=== PATIENT | female | born 1985 | race Caucasian/White ===

== ENCOUNTER 2022-12-10 10:21 | Outpatient (CLI) | payer MEDICAID, SELFPAY | END 2022-12-10 10:22 | disposition home or self-care (01) | PROVIDERS: PCP Internal Medicine; Visit Provider Internal Medicine | DX: F41.9 Anxiety disorder, unspecified (principal) | CPT/HCPCS: 80053; 84443 ==

== ENCOUNTER 2024-04-20 13:31 | Outpatient (CLI) | payer BC, SELFPAY ==
--- OUTSIDE RECORDS SUMMARY | 2024-04-21 14:47 | XMS_ITS | Clinical Summary ---
Author Organization [facility] Address [address], [place] [address] Care Team Providers Care Autoglazier Name Role Phone Unassigned, Provider Primary Care Provider Unava ilable Source Comments You are receiving this document as you are listed as the primary care provider,follow-up provider, or the patient has been referred to you for consultation.This is in compliance with the Medicare and[facility] EHR Incentive Program,which states Providers who transition their patient to another setting of careor provider of care or refers their patient to another provider of care shouldprovide summary care record for each transition of care or referral. [email or web address] Allergies Active Allergy Reactions Criticality Noted Date Comments Azathioprine 05/27/2011 R sided pain Prochlorperazine Other, see comments 05/14/2011 Dystonic reaction Droperidol 05/27/2011 Nsaids Other, see comments 05/14/2011 Not supposed to take b/c of Collitis Medications Medication Sig Dispensed Refills Start Date End Date Status venlafaxine (AKA EFFEXOR XR) 75 MG 24 hour release capsule Take 75 mg by mouth daily. Active citalopram (AKA CELEXA) 20 MG tablet Take 20 mg by mouth daily. Active mesalamine (AKA ASACOL) 400 MG enteric coated tablet Take 1,600 mg by mouth two times a day. Active cholecalciferol (AKA VITAMIN D3) 1000 UNIT tablet Take 5,000 Units by mouth every other day. Active adalimumab (HUMIRA PEN STARTER) 40 MG/0.8ML injection Inject subcutaneously every 14 days. See below 1 Each 3 05/29/2011 Active predniSONE (AKA DELTASONE) 20 MG tablet Take 2 Tabs by mouth daily. 10 Tab 0 01/25/2013 Active ondansetron (ZOFRAN ODT) 4 MG disintegrating tablet Take 2 Tabs by mouth every 8 hours as needed for Nausea. 30 Tab 0 01/25/2013 Active HYDROcodone-acetamin ophen (NORCO) 5-325 MG tablet Take 2 Tabs by mouth every 8 hours as needed for Pain. 6 Tab 0 01/25/2013 Active Active Problems Problem Noted Date Diagnosed Date IBD (inflammatory bowel disease) 05/27/2011 Asthma 05/27/2011 Anemia 05/27/2011 Depression 05/27/2011 Overview: Depression and anxiety Vitamin D deficiency 05/27/2011 Encounters Date Type Department Care Team Description 04/06/2024 12:20 PM CDT Lab Visit [facility] [address] [place] [address] Mild chronic ulcerative colitis with complication (HRC) from Last 3 Months Immunizations Name Administration Dates Next Due Influenza Vaccine (3+years) (Imm Clinic) 011 PPSV23 (Pneumovax) 05/26/2011 Family History Medical History Relation Name Comments COPD Father Other Brother down's syndrome Diabetes Sister Relation Name Status Comments Father Brother Sister Social History Tobacco Use Types Packs/Day Years Used Date Smoking Tobacco: Never Alcohol Use Standard Drinks/Week Comments No 0 (1 standard drink = 0.6 oz pur e alcohol) Sex and Gender Information Value Date Recorded Sex Assigned at Not on file Gender Identity Not on file Sexual Orientation Not on file Last Filed Vital Signs Vital Sign Reading Time Taken Comments Blood Pressure 107/60 01/25/2013 4:43 AM CDT Pulse 92 01/25/2013 4:43 AM CDT Temperature 36.7 ??C (98.1 ??F) 01/25/2013 1 2:23 AM CDT Respiratory Rate 16 01/25/2013 4:43 AM CDT Oxygen Saturation 97% 01/25/2013 4:43 AM CDT Inhaled Oxygen Concentration - - Weight 58.5 kg (128 lb 15.5 oz) 011 12:00 AM CDT Height 170.2 cm (5' 7) 05/27/2011 1:54 PM CDT Body Mass Index 20.2 05/27/2011 1:54 PM CDT Plan of Treatment Health Maintenance Due Date Last Done Comments Cervical Cancer Screening Due 1985 Hep C Screening (Preventive Services) 1985 Asthma ACT 1989 HIV Screening (Preventive Services) 2001 Adult Preventive Visit 2003 HepB (1) 2004 COVID-19 Vaccine (4 - season) 2023 09/13/2021, 02/10/2021, 01/21/2021 Influenza (#1) 2024 09/10/2022, 05/26, 07/02/2018, Additional history exists DTaP/Tdap/Td (4 - Tdap) 03/07/2028 03/07/20 18, 03/04/2018, 05/30/2016 Zoster/Shingles (2 of 2) 2035 11/12/2022 IPV (Polio) Aged Out 05/30/2016 No longer eligi ble based on patient's age to complete this topic Pneumococcal Aged Out 06/22/2016, 05/26/2011 No lo nger eligible based on patient's age to complete this topic HPV Vaccine Aged Out No longer eligi ble based on patient's age to complete this topic HepA Aged Out No longer eligi ble based on patient's age to complete this topic Hib Aged Out No longer eligi ble based on patient's age to complete this topic MCV4 Aged Out No longer eligi ble based on patient's age to complete this topic Procedures Procedure Name Priority Date/Time Associated Diagnosis Comments COMPLETE BLOOD COUNT-W/DIFF Routine 04/06/2024 12:17 PM CDT Mild chronic ulcerative colitis with complication (HRC) AST Routine 04/06/2024 12:17 PM CDT Mild chronic ulcerative colitis with complication (HRC) ALT (SGPT) Routine 04/06/2024 12:17 PM CDT Mild chronic ulcerative colitis with complication (HRC) CBC AND DIFFERENTIAL PANEL Routine 04/06/2024 12:17 PM CDT Mild chronic ulcerative colitis with complication (HRC) from Last 3 Months Results * Complete Blood Count-W/Diff (04/06/2024 12:17 PM CDT) [facility] WBC 5.9 3.5 - 10.5 x10(9)/L 04/06/2024 12:26 PM [facility] RBC 3.96 3.90 - 5.03 x10(12)/L 04/06/2024 12:26 PM [facility] Hemoglobin 12.4 12.0 - 15.5 g/dL 04/06/2024 12:26 PM [facility] HCT 38.2 34.9 - 44.5 % 04/06/2024 12:26 PM [facility] MCV 96.5 80.0 - 100.0 fL 04/06/2024 12:26 PM [facility] MCH 31.3 27.6 - 33.3 pg 04/06/2024 12:26 PM [facility] MCHC 32.5 31.5 - 35.2 g/dL 04/06/2024 12:26 PM [facility] RDW 12.9 11.9 - 15.5 % 04/06/2024 12:26 PM [facility] Platelets 389 150 - 450 x10(9)/L 04/06/2024 12:26 PM [facility] Neutrophil Absolute 3.0 1.7 - 7.0 10(9)/L 04/06/2024 12:26 PM [facility] Lymphocyte Absolute 2.3 1.0 - 4.8 10(9)/L 04/06/2024 12:26 PM [facility] Monocyte Absolute 0.5 0.2 - 0.9 10(9)/L 04/06/2024 12:26 PM [facility] Eosinophil Absolute 0.1 0.0 - 0.5 10(9)/L 04/06/2024 12:26 PM [facility] Basophil Absolute 0.1 0.0 - 0.3 10(9)/L 04/06/2024 12:26 PM [facility] Immature Granulocyte % 0.2 0.0 - 0.5 % 04/06/2024 12:26 PM [facility] Blood Venipuncture / Unknown 04/06/2024 12:17 PM CDT 04/06/2024 12:17 PM CDT Giancarlo Yadav MD LAB_1 Performing Organization Address City/[facility] Co de Phone Number [facility] [address] [place] [address] * ALT (SGPT) (04/06/2024 12:17 PM CDT) ALT (SGPT) 28 <=55 U/L 04/06/2024 5:06 PM CDT [facility] Blood Venipuncture / Unknown 04/06/2024 12:17 PM CDT 04/06/2024 12:17 PM CDT Giancarlo Yadav MD LAB_1 Performing Organization Address [facility] de Phone Number [facility] [address] [place] [address] * AST (04/06/2024 12:17 PM CDT) AST (SGOT) 29 10 - 40 U/L 04/06/2024 5:06 PM CDT [facility] Blood Venipuncture / Unknown 04/06/2024 12:17 PM CDT 04/06/2024 12:17 PM CDT Giancarlo Yadav MD LAB_1 Performing Organization Address [facility] Phone Number [facility] [address] [place] [address] from Last 3 Months Advance Directives * Full Code (Latest Code Status on File) Date Activated Date Inactivated Comments 05/27/2011 12:42 PM 05/29/2011 7:49 PM Care Teams Autoglazier Relationship Specialty Start Date End Date Unassigned, Provider [address] [place] [address] PCP - General Unknown Physician Specialty 01/25/13
--- OUTSIDE RECORDS SUMMARY | 2024-04-21 14:47 | XMS_ITS | Encounter Summary ---
Author Organization [facility] Address [address] [place] [address] Care Team Providers Care Bag Machine Operator Name Role Phone Unassigned, Provider Primary Care Provider Unava ilable Encounter Details Date Type Department Care Team (Late st Contact Info) Description 05/06/2016 Correspondence External to LETTER TO PATIENT REGARDING BIOPSIES Social History Tobacco Use Types Packs/Day Years Used Date Smoking Tobacco: Never Alcohol Use Standard Drinks/Week Comments No 0 (1 standard drink = 0.6 oz pur e alcohol) Sex and Gender Information Value Date Recorded Sex Assigned at Not on file Gender Identity Not on file Sexual Orientation Not on file documented as of this encounter Plan of Treatment Not on file documented as of this encounter Visit Diagnoses Not on filedocumented in this encounter Care Teams Bag Machine Operator Relationship Specialty Start Date End Date Unassigned, Provider [address] [place] [address] PCP - General Unknown Physician Specialty 01/25/13 documented as of this encounter
--- OUTSIDE RECORDS SUMMARY | 2024-04-21 14:47 | XMS_ITS | Clinical Summary ---
Author Organization [facility] Address [address] [place] [address] Care Team Providers Care Lead Security Officer Name Role Phone [facility], [facility] Primary Care Provider [phone] Allergies Active Allergy Reactions Criticality Noted Date Comments Azathioprine 06/14/2020 Prochlorperazine 06/14/2020 Droperidol 06/14/2020 Flurbiprofen 06/14/2020 Nsaids 06/14/2020 Medications Medication Sig Dispensed Refills Start Date End Date Status mesalamine (LIALDA) 1.2 g EC tablet Take 1,200 mg by mouth daily (with breakfast) Active venlafaxine (EFFEXOR-XR) 75 MG 24 hr capsule Take 75 mg by mouth daily Active adalimumab (HUMIRA) 40 MG/0.8ML prefilled syringe kit Inject 40 mg Subcutaneous every 14 days Active methocarbamol (ROBAXIN) 750 MG tablet Take 1 tablet (750 mg) by mouth every 6 hours as needed for muscle spasms 30 tablet 11/10/2022 Active Active Problems Problem Noted Date Diagnosed Date Severe sepsis 06/14/2020 Immunizations Name Administration Dates Next Due COVID-19 MONOVALENT 12+ (Pfizer) 09/13/2021,01/22,01/21/2021 Social History Tobacco Use Types Packs/Day Years Used Date Smoking Tobacco: Never Assessed Adolescent Education Answer Date Record ed Getting School Help Needed Not on file 06/16 Sex and Gender Information Value Date Recorded Sex Assigned at Female 06/14/2022 2:40 PM CDT Gender Identity Female 06/14/2022 2:40 PM CDT Sexual Orientation Not on file Last Filed Vital Signs Vital Sign Reading Time Taken Comments Blood Pressure 106/81 11/13/2023 6:52 AM LEAD RADIATION THERAPIST Pulse 97 11/13/2023 6:52 AM LEAD RADIATION THERAPIST Temperature 37.1 ??C (98.8 ??F) 11/13/2023 6:52 AM CS T Respiratory Rate 18 11/13/2023 6:52 AM LEAD RADIATION THERAPIST Oxygen Saturation 100% 11/13/2023 6:52 AM LEAD RADIATION THERAPIST Inhaled Oxygen Concentration - - Weight 59.4 kg (131 lb) 11/13/2023 6:52 AM LEAD RADIATION THERAPIST Height 167.6 cm (5' 6) 11/13/2023 6:52 AM LEAD RADIATION THERAPIST Body Mass Index 21.14 11/13/2023 6:52 AM LEAD RADIATION THERAPIST Plan of Treatment Health Maintenance Due Date Last Done Comments ADVANCE CARE PLANNING 1985 ANNUAL REVIEW OF HM ORDERS 1985 HIV SCREENING 2000 HEPATITIS C SCREENING 2003 HEPATITIS B IMMUNIZATION (3 of 3 - 19+ 3-dose series) 09/30/2008 05/04/2008, 05/04/2008, 03/30/2008, Additional history exists IPV IMMUNIZATION (2 of 3 - Adult catch-up series) 06/27/2016 05/30/2016 Pneumococcal Vaccine: Pediatrics (0 to 5 Years) and At-Risk Patients (6 to 64 Years) (3 of 3 - PPSV23 or PCV20) 2016 06/22/2016, 05/26/2011 PAP 01/31/2018 01/31/2015 YEARLY PREVENTIVE VISIT 11/25/2020 11/26/19 20, 10/31/2017, 02/18/2013, Additional history exists COVID-19 Vaccine ( - 2022- season) 2023 09/13/2021, 02/10/2021, 01/21/2021 PHQ-2 (once per calendar year) 2023 INFLUENZA VACCINE (#1) 2024 2, 06/22/2019, 07/02/2018, Additional history exists GLUCOSE 11/13/2026 11/13/2023, 10/24, 11/10/2022, Additional history exists DTAP/TDAP/TD IMMUNIZATION (4 - Td or Tdap) 03/07/2028 03/07/2018, 03/04/2018, 05/30/2016 HPV IMMUNIZATION Aged Out No longer e ligible based on patient's age to complete this topic MENINGITIS IMMUNIZATION Aged Out No l onger eligible based on patient's age to complete this topic RSV MONOCLONAL ANTIBODY Aged Out No l onger eligible based on patient's age to complete this topic Procedures Procedure Name Priority Date/Time Associated Diagnosis Comments BASIC METABOLIC PANEL STAT 11/13/2023 9:57 AM LEAD RADIATION THERAPIST from Last 3 Months or Most Recently Relevant to Health Maintenance Results * Basic metabolic panel (BMP) (11/13/2023 9:57 AM LEAD RADIATION THERAPIST) Sodium 138 135 - 145 mmol/L 11/13/2023 10:38 AM [facility] Comment:Reference intervals for this test were updated on 06/18/2023 to more accurately reflect our healthy population. There may be differences in the flagging of prior results with similar values performed with this method. Interpretation of those prior results can be made in the context of the updated reference intervals. Potassium 4.2 3.4 - 5.3 mmol/L 11/13/2023 10:38 AM [facility] Chloride 102 98 - 107 mmol/L 11/13/2023 10:38 AM [facility] Carbon Dioxide (CO2) 27 22 - 29 mmol/L 11/13/2023 10:38 AM [facility] Anion Gap 9 7 - 15 mmol/L 11/13/2023 10:38 AM [facility] Urea Nitrogen 7.1 6.0 - 20.0 mg/dL 11/13/2023 10:38 AM [facility] Creatinine 0.80 0.51 - 0.95 mg/dL 11/13/2023 10:38 AM [facility] GFR Estimate >90 >60 mL/min/1. 73m2 11/13/2023 10:38 AM [facility] Calcium 9.0 8.6 - 10.0 mg/dL 11/13/2023 10:38 AM [facility] Glucose 91 70 - 99 mg/dL 11/13/2023 10:38 AM [facility] Blood STRUCTURE OF LEFT UPPER LIMB / Unknown Venipuncture / Unknown 11/13/2023 9:57 AM LEAD RADIATION THERAPIST 11/13/2023 10:05 AM LEAD RADIATION THERAPIST Eddie Hernadez MD LAB - BLOOD ORD ERABLES LABORATORY [facility] [address] Lab (1st floor, no room number) [place] [address], [facility] [phone] from Last 3 Months or Most Recently Relevant to Health Maintenance Advance Directives For more information, please contact: [phone] * Full Code (Latest Code Status on File) Date Activated Date Inactivated Comments 06/16/2020 11:54 AM 07/09/2021 4:40 PM Question Answer Comments Code status determined by: Discussion with alex nt/ legal decision maker * Full Code Date Activated Date Inactivated Comments 06/14/2020 8:27 PM 06/16/2020 11:54 AM All basic a nd advanced life-sustaining interventions are performed as appropriate Question Answer Comments Code status determined by: Discussion with alex nt/ legal decision maker Care Teams Lead Security Officer Relationship Specialty Start Date End Date Clinic, [facility] [address] [place], [place] [address] PCP - General 06/14/20
--- OUTSIDE RECORDS SUMMARY | 2024-04-21 14:47 | XMS_ITS | Referral Summary ---
Author Organization [facility] Address [address] [place] [address] Care Team Providers Care Mayonnaise Mixer Name Role Phone [facility] Primary Care Provider Allergies Active Allergy Reactions Criticality Noted Date [...] Comments Blood Pressure 106/81 11/13/2023 6:52 AM [facility] Pulse 97 11/13/2023 6:52 AM [facility] Temperature 37.1 ??C (98.8 ??F) 11/13/2023 6:52 AM CS T Respiratory Rate 18 11/13/2023 6:52 AM [facility] Oxygen Saturation 100% 11/13/2023 6:52 AM [facility] Inhaled Oxygen Concentration - - Weight 59.4 kg (131 lb) 11/13/2023 6:52 AM [facility] Height 167.6 cm (5' 6) 11/13/2023 6:52 AM [facility] Body Mass Index 21.14 11/13/2023 6:52 AM [facility] Plan of Treatment Not on file Procedures Procedure Name Priority Date/Time Associated Diagnosis Comments BASIC METABOLIC PANEL STAT 11/13/2023 9:57 AM [facility] from Last 3 Months or Most Recently Relevant to Health Maintenance Results * Basic metabolic panel (BMP) (11/13/2023 9:57 AM [facility]) [facility] Signature Sodium 138 135 - 145 mmol/L 11/13/2023 10:38 AM [facility] Comment:Reference intervals for this test were updated on 06/18/2023 to more accurately reflect our healthy population. There may be differences in the flagging of prior results with similar values performed with this method. Interpretation of those prior results can be made in the context of the updated reference intervals. Potassium 4.2 3.4 - 5.3 mmol/L 11/13/2023 10:38 AM [facility] Chloride 102 98 - 107 mmol/L 11/13/2023 10:38 AM [facility] Carbon Dioxide (CO2) 27 22 - 29 mmol/L 11/13/2023 10:38 AM [facility] Anion Gap 9 7 - 15 mmol/L 11/13/2023 10:38 AM [facility] Urea Nitrogen 7.1 6.0 - 20.0 mg/dL 11/13/2023 10:38 AM [facility] Creatinine 0.80 0.51 - 0.95 mg/dL 11/13/2023 10:38 AM [facility] GFR Estimate >90 >60 mL/min/1. 73m2 11/13/2023 10:38 AM [facility] Calcium 9.0 8.6 - 10.0 mg/dL 11/13/2023 10:38 AM [facility] Glucose 91 70 - 99 mg/dL 11/13/2023 10:38 AM [facility] Blood STRUCTURE OF LEFT UPPER LIMB / Unknown Venipuncture / Unknown 11/13/2023 9:57 AM [facility] 11/13/2023 10:05 AM [facility] Eddie Hernadez MD LAB - BLOOD ORD ERABLES [facility] LABORATORY [facility] [address] Lab (1st floor, no room number) [place] [address], [facility] [phone] from Last 3 Months or Most Recently Relevant to Health Maintenance Advance Directives For more information, please contact: [phone] * Full Code (Latest Code Status on [...] Comments Code status determined by: Discussion with patie nt/ legal decision maker Care Teams Mayonnaise Mixer Relationship Specialty Start Date End Date Clinic, MD [facility] [address] [place] [address] PCP - General 06/14/20
--- OUTSIDE RECORDS SUMMARY | 2024-04-21 14:47 | XMS_ITS | Encounter Summary ---
Author Organization [facility] Address [address] [place] [address] Care Team Providers Care Manager Intensive Care Name Role Phone Unassigned, Provider Primary Care Provider Unava ilable Encounter Details Date Type Department Care Team (Late st Contact Info) Description 07/05/2015 Emergency Room External to [facility] REPORT Social History Tobacco Use Types Packs/Day Years [...] on filedocumented in this encounter Care Teams Manager Intensive Care Relationship Specialty Start Date End Date Unassigned, Provider [address] [place] [address] PCP - General Unknown Physician Specialty 01/25/13 documented as of this encounter
--- OUTSIDE RECORDS SUMMARY | 2024-04-21 14:47 | XMS_ITS | Encounter Summary ---
Author Organization [facility] Address [address] [place] [address] Care Team Providers Care Licensed Reactor Operator Name Role Phone Unassigned, Provider Primary Care Provider Unava ilable Encounter Details Date Type Department Care Team (Late st Contact Info) Description 04/06/2024 12:20 PM CDT Lab Visit [facility] [address] [place] [address] Mild chronic ulcerative colitis with complication (HRC) Social History Tobacco Use Types Packs/Day Years [...] on file documented as of this encounter Procedures Procedure Name Priority Date/Time Associated Diagnosis Comments CBC AND DIFFERENTIAL PANEL Routine 04/06/2024 12:17 PM CDT Mild chronic ulcerative colitis with complication (HRC) COMPLETE BLOOD COUNT-W/DIFF Routine 04/06/2024 12:17 PM CDT Mild chronic ulcerative colitis with complication (HRC) ALT (SGPT) Routine 04/06/2024 12:17 PM CDT Mild chronic ulcerative colitis with complication (HRC) AST Routine 04/06/2024 12:17 PM CDT Mild chronic ulcerative colitis with complication (HRC) documented in this encounter Results * Complete Blood Count-W/Diff (04/06/2024 12:17 PM CDT) WBC 5.9 3.5 - 10.5 x10(9)/L 04/06/2024 12:26 PM [facility] RBC 3.96 3.90 - 5.03 x10(12)/L 04/06/2024 12:26 PM [facility] Hemoglobin 12.4 12.0 - 15.5 g/dL 04/06/2024 12:26 PM [facility] HCT 38.2 34.9 - 44.5 % 04/06/2024 12:26 PM [facility] MCV 96.5 80.0 - 100.0 fL 04/06/2024 12:26 PM [facility] MCH 31.3 27.6 - 33.3 pg 04/06/2024 12:26 PM [facility] MCHC 32.5 31.5 - 35.2 g/dL 04/06/2024 12:26 PM [facility] RDW 12.9 11.9 - 15.5 % 04/06/2024 12:26 PM [facility] Platelets 389 150 - 450 x10(9)/L 04/06/2024 12:26 PM [facility] Neutrophil Absolute 3.0 1.7 - 7.0 10(9)/L 04/06/2024 12:26 PM [facility] Lymphocyte Absolute 2.3 1.0 - 4.8 10(9)/L 04/06/2024 12:26 PM [facility] Monocyte Absolute 0.5 0.2 - 0.9 10(9)/L 04/06/2024 12:26 PM [facility] Eosinophil Absolute 0.1 0.0 - 0.5 10(9)/L 04/06/2024 12:26 PM [facility] Basophil Absolute 0.1 0.0 - 0.3 10(9)/L 04/06/2024 12:26 PM [facility] Immature Granulocyte % 0.2 0.0 - 0.5 % 04/06/2024 12:26 PM [facility] Blood Venipuncture / Unknown 04/06/2024 12:17 PM CDT 04/06/2024 12:17 PM CDT Giancarlo Yadav MD LAB_1 Performing Organization Address City/[facility]/ZIP Co de Phone Number [facility] [address] [place] [address] * AST (04/06/2024 12:17 PM CDT) AST (SGOT) 29 10 - 40 U/L 04/06/2024 5:06 PM CDT [facility] Blood Venipuncture / Unknown 04/06/2024 12:17 PM CDT 04/06/2024 12:17 PM CDT Giancarlo Yadav MD LAB_1 Performing Organization Address [facility] Co de Phone Number [facility] [address] [place] [address] * ALT (SGPT) (04/06/2024 12:17 PM CDT) ALT (SGPT) 28 <=55 U/L 04/06/2024 5:06 PM CDT [facility] Blood Venipuncture / Unknown 04/06/2024 12:17 PM CDT 04/06/2024 12:17 PM CDT Giancarlo Yadav MD LAB_1 Performing Organization Address [facility]/ZIP Co de Phone Number [place] [address] [place] [address] documented in this encounter Visit Diagnoses Diagnosis Mild chronic ulcerative colitis with complication (HRC) documented in this encounter Care Teams Licensed Reactor Operator Relationship Specialty Start Date End Date Unassigned, Provider [address] [place] [address] PCP - General Unknown Physician Specialty 01/25/13 documented as of this encounter
--- OUTSIDE RECORDS SUMMARY | 2024-04-21 14:47 | XMS_ITS | Clinical Summary ---
Author Organization [facility] Address [place], [place] [address] Care Team Providers Care Coordinator Of Library Services Name Role Phone [facility] Primary Care Provider [phone] Colton Kelley MD Unavailable [phone] Allergies Active Allergy Reactions Criticality Noted Date Comments Prochlorperazine 09/13/2008 Prochlorperazine Dystonia High 04/11/2023 Diatrizoate Allergen Rash 06/26/2004 PT IS NOT ALLERGIC TO CT IV CONTRAST, HAS BEEN DONE SEVERAL TIMES AND NO PROBLEM Droperidol Dystonia High 04/11/2023 Flurbiprofen Other - Describe In Comment Field 04/11/2023 Ulcerative colitis Nsaids (Non-Steroidal Anti-Inflammatory Drug) 09/26/2007 Nsaids (Non-Steroidal Anti-Inflammatory Drug) Other - Describe In Comment Field 04/11/2023 Ulcerative colitis Medications Medication Sig Dispensed Refills Start Date End Date Status CELEXA 20 MG TAB take 1 tablet (20 mg) by oral route once daily 0 Active ONDANSETRON 4 MG TAB, RAPID DISSOLVE take 1-2 tablets (4-8 mg) and place on top of the tongue where it will dissolve, then swallow by oral route every 8 hours for 2 days 15 0 09/27/2007 Active MESALAMINE 400 MG TAB, DELAYED RELEASE take 1 tablet (400 mg) by oral route 4 times per day 0 07/11/2008 Active EFFEXOR 75 MG TAB 1 times per day with food 0 07/11/2008 Active ALBUTEROL (REFILL) 90 MCG/ACTUATION AEROSOL INHALERIndications: Wheezing inhale 1 puff by inhalation route every 4-6 hours as needed 1 0 07/11/2008 Active ONDANSETRON 8 MG TAB, RAPID DISSOLVE take 1 tablet (8 mg) and place on top of the tongue where it will dissolve, then swallow by oral route every 8 hours for 2 days 6 0 10/21/2008 Active POLYETHYLENE GLYCOL 3350 100 % ORAL POWDER take 1 tablespoonful (17 gram) powder mixed with 8 oz. water, juice, soda, coffee, or tea by oral route once daily 1 0 10/21/2008 Active ondansetron (ZOFRAN ODT) [address] 1 tablet on the tongue every 8 hours if needed for Nausea/Vomiting. 10 tablet 0 06/22/2010 Active dextroamphetamine-a mphetamine (Adderall XR) 20 mg Extended-Release capsule Take 20 mg by mouth once daily. Active upadacitinib (Rinvoq) 30 mg Tb24 Take 30 mg by mouth once daily. Active escitalopram oxalate (Lexapro) 10 mg tablet Take 10 mg by mouth once daily. Active hydrOXYzine HCL (ATARAX) 10 mg tablet Take 10 mg by mouth four times daily. Active ondansetron (ZOFRAN ODT) [address] 8 mg on the tongue two times daily. Active levonorgestrel (MIRENA) 20 mcg/24 hours (8 yrs) 52 mg intrauterine device (IUD) Inject 1 Device intrauterine one time. Active dextroamphetamine-a mphetamine (ADDERALL XR) 10 mg Extended-Release capsule Take 10 mg by mouth. Active dextroamphetamine-a mphetamine (ADDERALL) 5 mg tablet Take 5 mg by mouth. 12/28/2023 Active escitalopram oxalate (LEXAPRO) 5 mg tablet Take 5 mg by mouth once daily. 01/14/2024 Active valACYclovir (VALTREX) 1 gram tabletIndications:H erpes zoster without complication Take 1 Tablet (1 g) by mouth three times daily for 7 days. 21 Tablet 03/16/2024 4 gabapentin (NEURONTIN) 100 mg capsuleIndications: Herpes zoster without complication Take 1 Capsule (100 mg) by mouth two times daily for 7 days. 14 Capsule 03/16/2024 4 valACYclovir (VALTREX) 1 gram tabletIndications:H erpes zoster without complication Take 1 Tablet (1 g) by mouth once daily. 30 Tablet 03/16/2024 Encounters Date Type Department Care Team Description 03/16/2024 6:15 PM CDT Office Visit [facility] [address] [place] [phone] Alfie Ayoub PA Rash 03/16/2024 Travel from Last 3 Months Social History Tobacco Use Types Packs/Day Years Used Date Smoking Tobacco: Never Cigarettes 0.5 3 Smokeless Tobacco: Never Tobacco Cessation:Counseling Given: Not Answered Alcohol Use Standard Drinks/Week Comments Never 0 (1 standard drink = 0.6 oz pur e alcohol) Sex and Gender Information Value Date Recorded Sex Assigned at Not on file Gender Identity Not on file Sexual Orientation Not on file Obstetrics History Last Filed Vital Signs Vital Sign Reading Time Taken Comments Blood Pressure 112/61 03/16/2024 6:33 PM CDT Pulse 85 03/16/2024 6:33 PM CDT Temperature 36.8 ??C (98.3 ??F) 03/16/2024 6:33 PM CD T Respiratory Rate 14 03/16/2024 6:33 PM CDT Oxygen Saturation 99% 03/16/2024 6:33 PM CDT Inhaled Oxygen Concentration - - Weight 59 kg (130 lb) 04/11/2023 11:41 PM CDT Height 170.2 cm (5' 7) 04/11/2023 11:41 PM CDT Body Mass Index 20.36 04/11/2023 11:41 PM CDT Plan of Treatment Health Maintenance Due Date Last Done Comments Tdap 1996 Depression screening for age 12+ 1997 HIV for age 15-65 2000 BMI (ht and wt on same day) for age 18+ 2003 Hepatitis C screening for ag e 18-79 2003 Tetanus booster 2005 Pap test for age 21-65 2006 COVID-19 vaccine series ( season) 2023 09/13/2021, 02/10/2021, 01/21/2021 Influenza for age 9-49 05/24/2024 Pneumococcal series for age 6-64 Aged Out No longer eligible b ased on patient's age to complete this topic Care Teams Coordinator Of Library Services Relationship Specialty Start Date End Date [facility] [address] [place] [address] PCP - General 04/12/23 Colton Kelley MD [address] [place] [address] 04/12/23
--- OUTSIDE RECORDS SUMMARY | 2024-04-21 14:48 | XMS_ITS | Encounter Summary ---
Author Organization [facility] Address [address] [place] [id number] Care Team Providers Care Scrap Baller Name Role Phone Elsewhere, Pcp Primary Care Provider Unavailabl e Reason for Visit * Reason Comments Med Refill Encounter Details Date Type Department Care Team (Late st Contact Info) Description 01/20/2024 Refill Division of Gastroenterology in [place], [place] [address] [place] [phone] Giancarlo Yadav M.D. [address] [place] [phone] Med Refill Social History Tobacco Use Types Packs/Day Years Used Date Smoking Tobacco: Never Smokeless Tobacco: Never Comments:none Alcohol Use Standard Drinks/Week Comments No 0 (1 standard drink = 0.6 oz pur e alcohol) [facility] Utilities Answer Date Recorded In the past 12 months has e [employer], gas, oil, or water [employer] threatened to shut off services in your home? No 10/10/2023 Humiliation, Afraid, Rape, and Kick questionnair e Answer Date Recorded Within the last year, have y ou been afraid of your partner or ex-partner? No 10/01/2022 Within the last year, have y ou been humiliated or emotionally abused in other ways by your partner or ex-partner? No Within the last year, have y ou been kicked, hit, slapped, or otherwise physically hurt by your partner or ex-partner? No 10/01/2022 Within the last year, have y ou been raped or forced to have any kind of sexual activity by your partner or ex-partner? No 10/01/2022 Social Connection and Isolation Panel [NHANES] A nswer Date Recorded In a typical week, how many times do you talk on the phone with family, friends, or neighbors? Twice a week 10/01/2022 How often do you get togethe r with friends or relatives? Patient declined 10/01/2022 How often do you attend bahai or congregation serv ices? Patient declined 10/01/2022 Do you belong to any clubs o r organizations such as bahai groups, unions, fraternal or athletic groups, or school groups? Patient declined 10/01/2022 How often do you attend meet ings of the clubs or organizations you belong to? Patient declined 10/01/2022 Are you , , di vorced, , never , or living with a partner? 10/01/2022 AUDIT-C Answer Date Recorded Q1: How often do you have a drink containing alc ohol? Never 10/01/2022 Average Number of Drinks Not on file 023 Frequency of Binge Drinking Not on file 05/2023 Overall Financial Resource Strain (CARDIA) Answe r Date Recorded How hard is it for you to pa y for the very basics like food, housing, medical care, and heating? Somewhat hard 10/01/2022 PHQ-2 Answer Date Recorded PHQ-2 Score 2 07/19/2022 [facility] - Occupational Stress Questionnaire Answer Date Recorded Do you feel stress - tense, restless, nervous, or anxious, or unable to sleep at night because your mind is troubled all the time - these days? Only a little 10/01/2022 Exercise Vital Sign Answer Date Recorde d On average, how many days pe r week do you engage in moderate to strenuous exercise (like a brisk walk)? 6 days 10/10/2023 On average, how many minutes do you engage in exercise at this level? 110 min 10/10/2023 Hunger Vital Sign Answer Date Recorded Within the past 12 months, y ou worried that your food would run out before you got the money to buy more. Sometimes true Within the past 12 months, t he food you bought just didn't last and you didn't have money to get more. Never true PRAPARE - Transportation Answer Date Re corded In the past 12 months, has l ack of transportation kept you from medical appointments or from getting medications? No 09/23 In the past 12 months, has l ack of transportation kept you from meetings, work, or from getting things needed for daily living? No 10/10/2023 Depression Answer Date Recor ded PHQ-9 Total Score (max 27) 7 07/19 Nutrition Answer Date Recorded Nutrition: EVOO Fat Source No 10/10 On average, how many serving s of fruits and vegetables do you eat per day (serving size is equal to 1 cup or approximately the size of a tennis ball)? 5 or more 10/10/2023 Dental Answer Date Recorded Dental: Regular Dentist No 10/10/19 Employment Answer Date Recorded Employment status Employed and actively working without restrictions 10/01/2022 Housing Stability Answer Date Recorded What is your living situation today? I have a [facility] place to live 10/10/2023 Education Answer Date Recorded What is the highest level of school you have completed or the highest degree you have received? Some college, no degree 10/01/2022 Sex and Gender Information Value Date Recorded Sex Assigned at Female 07/14/2021 12:28 AM CDT Gender Identity Female 07/14/2021 12:28 AM CDT Sexual Orientation Straight 07/23/2018 11 :45 PM CDT documented as of this encounter Plan of Treatment Upcoming Encounters Date Type Department Care Team (Late st Contact Info) Description 06/11/2024 3:15 PM CDT Office Visit Department of Dermatology in [place], [place] [address] [place] [address] Michael Kiran M.D., M.S. [address] [place] [phone] documented as of this encounter Visit Diagnoses Diagnosis Colitis Ulcerative (HCC) Medication Therapy Track Template Maker Not Anticoagulant documented in this encounter Additional Health Concerns Assessment Noted Time PHQ-9 Depression Total Score: 7 07/19/20 22 7:48 AM CDT documented as of this encounter Care Teams Scrap Baller Relationship Specialty Start Date End Date Elsewhere, Pcp PCP - General Internal Medicine 12/28/22 documented as of this encounter
--- OUTSIDE RECORDS SUMMARY | 2024-04-21 14:48 | XMS_ITS ---
Author Organization [facility] Address [address] [place] [address] Care Team Providers Care Surgical Services Coordinator Name Role Phone Unavailable Unavailable Unavailable Surgery Details Not on file Complications Check Surgery Details section. Procedure Estimated Blood Loss Check Surgery Details section. Procedure Findings Check Surgery Details section. Procedure Specimens Taken Check Surgery Details section.
--- OUTSIDE RECORDS SUMMARY | 2024-04-21 14:48 | XMS_ITS | Encounter Summary ---
Author Organization [facility] Address [address] [place] [address] Care Team Providers Care Hardwood Floor Layer Name Role Phone Elsewhere, Pcp Primary Care Provider Unavailabl e Reason for Visit * Reason Onset Date Comments Rinvoq lab monitoring 04/10/2024 Encounter Details Date Type Department Care Team (Late st Contact Info) Description 04/10/2024 Clinical Communication Division of Gastroenterology in [place], [place] [address] [place] [phone] Giancarlo Yadav M.D. [address] [place] [phone] Rinvoq lab monitoring Social History Tobacco Use Types Packs/Day Years Used Date Smoking Tobacco: Never Smokeless Tobacco: Never Comments:none Alcohol Use Standard Drinks/Week Comments No 0 (1 standard drink = 0.6 oz pur e alcohol) [facility] Utilities Answer Date Recorded In the past 12 months has [facility] [place], gas, oil, or water [employer] threatened to shut off services in your [...] declined 10/01/2022 How often do you attend anglican or mormon serv ices? Patient declined 10/01/2022 Do you belong to any clubs o r organizations such as anglican groups, unions, fraternal or athletic groups, or [...] Answer Date Recorded PHQ-2 Score 2 07/19/2022 [facility] - Occupational [...] your living situation today? I have a [facility] place to live 10/10/2023 Education Answer [...] CDT Office Visit Department of Dermatology in [place], [place] [address] [place] [address] Michael Kiran M.D., M.S. [address] [place] [phone] documented as of this encounter Visit Diagnoses Not on filedocumented in this encounter Additional Health Concerns Assessment Noted Time PHQ-9 Depression Total Score: 7 07/19/20 22 7:48 AM CDT documented as of this encounter Care Teams Hardwood Floor Layer Relationship Specialty Start Date End Date Elsewhere, Pcp PCP - General Internal Medicine 12/28/22 documented as of this encounter
--- OUTSIDE RECORDS SUMMARY | 2024-04-21 14:48 | XMS_ITS | Encounter Summary ---
Author Organization [facility] Address [address] [place] [address] Care Team Providers Care Hazardous Material Technician Name Role Phone Chino Almendarez MD Primary Care Provider [phone] Encounter Details Date Type Department Care Team (Late st Contact Info) Description 07/09/2021 Documentation Only INTERFACED REPORT Unknown, Provider Social History Tobacco Use Types Packs/Day Years Used Date Smoking Tobacco: Never Assessed Sex and Gender Information Value Date Recorded Sex Assigned at Female 06/14/2022 2:40 PM CDT Gender Identity Female 06/14/2022 2:40 PM CDT Sexual Orientation Not on file COVID-19 Exposure Response Date Recorded In the last month, have you been in contact with someone who was confirmed or suspected to have Coronavirus / COVID-19? No / Unsure 07/09/2021 4:42 PM CDT documented as of this encounter Plan of Treatment Not on file documented as of this encounter Visit Diagnoses Not on filedocumented in this encounter Additional Health Concerns Infection Onset Date Last Indicated Resolved Time Rule Out C-difficile 07/09/2021 07/09/2021 6:56 PM CDT Rule Out C-difficile 08/01/2021 08/01/2021 021 4:20 PM UPHOLSTERY BUNDLER Rule Out C-difficile 08/02/2021 08/01/2021 021 3:47 PM UPHOLSTERY BUNDLER Rule Out COVID-19 11/13/2023 11/13/2023 11/13/2023 7:57 AM UPHOLSTERY BUNDLER COVID-19 11/13/2023 11/13/2023 12/04/2023 11:4 0 PM CDT documented as of this encounter Care Teams Hazardous Material Technician Relationship Specialty Start Date End Date Chino Almendarez MD [address] [place], [place] [phone] PCP - General 06/14/20 documented as of this encounter
--- OUTSIDE RECORDS SUMMARY | 2024-04-21 14:48 | XMS_ITS | Encounter Summary ---
Author Organization [facility] Address [address] [place] [address] Care Team Providers Care Credentialing Assistant Name Role Phone Chino Almendarez MD Primary Care Provider [phone] Encounter Details Date Type Department Care Team (Late st Contact Info) Description 07/29/2021 Documentation Only INTERFACED REPORT Unknown, Provider Social [...] have Coronavirus / COVID-19? No / Unsure 08/01/2021 8:09 AM HOUSECLEANER FLOOR documented as of this encounter Plan of Treatment Not on file documented as of this encounter Visit Diagnoses Not on filedocumented in this encounter Additional Health Concerns Infection Onset Date Last Indicated Resolved Time Rule Out C-difficile 08/01/2021 08/01/2021 021 4:20 PM HOUSECLEANER FLOOR Rule Out C-difficile 08/02/2021 08/01/2021 021 3:47 PM HOUSECLEANER FLOOR Rule Out COVID-19 11/13/2023 11/13/2023 11/13/2023 7:57 AM HOUSECLEANER FLOOR COVID-19 11/13/2023 11/13/2023 12/04/2023 11:4 0 PM CDT documented as of this encounter Care Teams Credentialing Assistant Relationship Specialty Start Date End Date Chino Almendarez MD [address] [place] [address] PCP - General 06/14/20 documented as of this encounter
--- OUTSIDE RECORDS SUMMARY | 2024-04-21 14:48 | XMS_ITS | Clinical Summary ---
Author Organization [facility] Address [address] [place] [address] Care Team Providers Care Cnc Field Service Engineer Name Role Phone Elsewhere, Pcp Primary Care Provider Unavailabl e Source Comments Patient records contain information from all sites at [facility]. For routine questions regarding patient records, call [phone] during business hours, M-F 8:00 AM - 5:00 PM Central Time. Record requests for emergency care only can be directed to [phone] at any time.[facility] Allergies Active Allergy Reactions Criticality Noted Date Comments Azathioprine Other (see comments) High 08/09/2016 Abdominal pain Diatrizoate Meglumine Rash Medium 06/26/2004 PT IS NOT ALLERGIC TO CT IV CONTRAST, HAS BEEN DONE SEVERAL TIMES AND NO PROBLEM Droperidol Other (see comments) High 08/09/2016 Vision disturbance Flurbiprofen Other (see comments) High 08/09/2016 Told to avoid due to colitis Nsaids (Non-Steroidal Anti-Inflammatory Drug) GI intolerance Medium 02/16/2020 Prochlorperazine Other (see comments) High 08/09/2016 Dystonic reaction Medications Medication Sig Dispensed Refills Start Date End Date Status levonorgestreL (LILETTA) 20.1 mcg/24 hrs (6 yrs) 52 mg IUD 1 each by intrauterine route continuously. 05/17/2020 Active multivitamin tablet Take 1 tablet by mouth daily. Active ondansetron ODT (ZOFRAN-ODT) 4 mg disintegrating tablet Dissolve 4 mg in the mouth every 8 (eight) hours as needed for vomiting or nausea. 08/01/2021 Active adapalene (DIFFERIN) 0.3 % gel Apply 1 Application topically at bedtime. Apply to face. 45 g 11 06/06/2023 Active polyethylene glycol-electrolytes (GoLYTELY) 236-22.74-6.74 -5.86 gram solution Drink 1st portion of prep at 6 PM the evening before. 2nd portion must be started 3 hours before and finished 2 hours prior to report time 4000 mL 09/12/2023 Active metroNIDAZOLE (METROCREAM) 0.75 % cream Apply 1 Application topically 2 (two) times a day. 45 g 3 10/14/2023 Active sulfacetamide sodium-sulfur (AVAR) 10-5 % (w/w) cleanser Apply 1 Application topically at bedtime. 170 g 10/14/2023 Active amphetamine-dextroam phetamine (ADDERALL XR) 10 mg 24 hr capsule Take 10 mg by mouth daily. Active dextroamphetamine-am phetamine (ADDERALL) 10 mg tablet Take 10 mg by mouth daily. Active Rinvoq 30 mg 24 hr tabletIndications:Co litis Ulcerative (HCC),Medication Therapy Nursing Home Not Anticoagulant take one tablet by mouth once daily 30 tablet 3 01/22/2024 Active Active Problems Problem Noted Date Diagnosed Date Melanoma Skin Multiple Site 05/11/2020 Melanoma Trunk 01/28/2020 Overview (01/28/2020): Added automatically from request for surgery [id number] Counseling Preconception 02/03/2019 Colitis Ulcerative Pancolonic 08/09/2016 Anxiety Generalized Disorder 11/25/2008 Resolved Problems Problem Noted Date Diagnosed Date Resolved Date Uterine Septum 09/05/2016 02/03/2019 Encounters Date Type Department Care Team Description 04/10/2024 Clinical Communication Division of Gastroenterology in [place], [place] [address] [place] [address] Giancarlo Yadav M.D. Rinvoq lab monitoring from Last 3 Months Immunizations Name Administration Dates Next Due DTaP-IPV 05/30/2016 HepB Adult 05/04/2008,03/30/2008 HepB Pediatric/Adolescent 05/04/2008,03/30/2008 Influenza (IM) Preservative Free 014,05/26/2011,09/01/2010,2008 Influenza TIV (IM) 07/17/2012,09/01/2010, 009 Influenza, Injectable, Mdck, Preservative Free, Quadrivalent 07/02/2018 Influenza, Injectable, Quadrivalent 06/22/2017 Influenza, Seasonal, Injectable 07/17/2012,09/01,06/16/2009 PCV13 06/22/2016 PPD Test 05/24/2011,07/15/2008 PPSV23 05/26/2011 RZV (SHINGRIX) 11/12/2022 Tdap 03/07/2018,03/04/2018 influenza vaccine quad (FLUZONE/FLUARIX) (6 months and older)(PF) 09/10/2022,06/22/2019,06/22/2017,2014,06/04/2014 Family History Medical History Relation Name Comments Melanoma Sister Renetta Relation Name Status Comments Sister Renetta Social History Tobacco Use Types Packs/Day Years Used Date Smoking Tobacco: Never Smokeless Tobacco: Never Tobacco Cessation:Counseling Given: Not Answered Comments:none Alcohol Use Standard Drinks/Week Comments No 0 (1 standard drink = 0.6 oz pur e alcohol) [facility] Utilities Answer Date Recorded In the past 12 months has [employer], gas, oil, or water [employer] threatened to shut off services in your [...] declined 10/01/2022 How often do you attend mu-ism or bahai serv ices? Patient declined 10/01/2022 Do you belong to any clubs o r organizations such as mu-ism groups, unions, fraternal or athletic groups, or [...] Answer Date Recorded PHQ-2 Score 2 07/19/2022 [facility] - Occupational Stress Questionnaire Answer Date Recorded [...] Date Recorded Dental: Regular Dentist No 10/10/19 24 Employment Answer Date Recorded Employment status Employed and actively working without restrictions 10/01/2022 Housing Stability Answer Date Recorded What is your living situation today? I have a [facility] place to live 10/10/2023 Education Answer Date Recorded What is the highest level of school you have completed or the highest degree you have received? Some college, no degree 10/01/2022 Sex and Gender Information Value Date Recorded Sex Assigned at Female 07/14/2021 12:28 AM CDT Gender Identity Female 07/14/2021 12:28 AM CDT Sexual Orientation Straight 07/23/2018 11 :45 PM CDT Last Filed Vital Signs Vital Sign Reading Time Taken Comments Blood Pressure 112/64 06/04/2023 2:25 PM CDT Pulse 88 06/04/2023 2:25 PM CDT Temperature 36.5 ??C (97.7 ??F) 10/29/2022 1:05 PM CS T Respiratory Rate 19 10/29/2022 1:31 PM TELEPHONE MAINTAINER Oxygen Saturation 99% 10/29/2022 1:31 PM TELEPHONE MAINTAINER Inhaled Oxygen Concentration - - Weight 59.9 kg (132 lb 2.7 oz) 09/06/2021 7:54 A M TELEPHONE MAINTAINER Height 166.4 cm (5' 5.51) 10/29/2022 12:[address] Body Mass Index 21.65 09/06/2021 7:54 AM TELEPHONE MAINTAINER Plan of Treatment Upcoming Encounters Date Type Department Care Team (Late st Contact Info) Description 06/11/2024 3:15 PM CDT Office Visit Department of Dermatology in [place], [place] [address] [place] [address] Michael Kiran M.D., M.S. [address] [place] [address] Health Maintenance Due Date Last Done Comments Hepatitis B Vaccines (3 of 3 - 19+ 3-dose series) 09/30/2008 05/04/2008, 05/04/2008, 03/30/2008, Additional history exists Pneumococcal vaccine (0-64 years) (3 of 3 - PPSV23 or PCV20) 2016 06/22/2016, 05/26/2011 Zoster Vaccines (2 of 2) 01/07/2023 11/12/2022 COVID-19 Vaccine (4 - 2022- season) 2023 09/13/2021, 02/10/2021, 01/21/2021 Depression Screening (Annual PHQ-2) 09/23/2023 Influenza Vaccine (#1) 2024 , 06/22/2019, 07/02/2018, Additional history exists Cervical Cancer Screening 05/17/20252019, 05/17/2020, 07/24/2016 (Performed elsewhere), Additional history exists Lipid (Cholesterol) Screening 11/16/2027 11/16/2022 DTaP,Tdap,and Td Vaccines (4 - Td or Tdap) 03/07/2028 03/07/2018, 03/04/2018, 05/30/2016 Hepatitis C Screening Completed 11/16/2022 , 01/04/2022, 02/14/2021 HPV Vaccines Aged Out No longer eligi ble based on patient's age to complete this topic Medical Devices Implanted Type Area Dry Yard Worker Device Identifier Shelf Expiration Date Model / Serial / Lot Clp Hrzn Ti 6 Clp Marcus - [id number] Implanted:Qt y: 1 on 02/16/2020 by Paige Rocha M.D. at [facility] Hardware e.g. pins/screws/johnny s Teleflex [employer] [id number] / / Clp Hrzn Ti 6 Clp Marcus - [id number] Implanted:Qt y: 1 on 02/16/2020 by Paige Rocha M.D. at [facility] Hardware e.g. pins/screws/johnny s [employer]flex [employer] [id number] 04/07/2024 [id number] / / [id number] Clp Hrzn Ti 6 Clp Marcus - [id number] Implanted:Qt y: 1 on 02/16/2020 by Paige Rocha M.D. at [facility] Hardware e.g. pins/screws/johnny s [employer] [id number] 04/07/2024 [id number] / / [id number] Description:Patient notes no screw,clips in body 03/07 2023 Liletta-05/17 Implanted:Qt y: 1 on 05/17/2020 by Renetta Jain M.D. Intrauterine Device Uterus TYFFON Medical / / Description:Due for removal 05/17/2026 Procedures Procedure Name Priority Date/Time Associated Diagnosis Comments HCV AB SCRN W/REFLEX TO HCV PCR, S Routine 11/16/2022 11:16 AM TELEPHONE MAINTAINER Colitis Ulcerative (HCC) LIPID PANEL, S Routine 11/16/2022 11:16 AM TELEPHONE MAINTAINER Colitis Ulcerative (HCC) THINPREP W/HPV CO-TEST SCREEN Routine 05/17/2020 1:54 PM CDT Pap Smear Examination from Last 3 Months or Most Recently Relevant to Health Maintenance Results * Lipid Panel (11/16/2022 11:16 AM TELEPHONE MAINTAINER) Triglycerides 85 mg/dL 11/16/2022 12:21 PM TELEPHONE MAINTAINER DTL Comment: ----REFERENCE VALUE---- Normal: <150 mg/dL Borderline High: 150-199 mg/dL High: 200-499 mg/dL Very High: > or =500 mg/dL Cholesterol, Total 183 mg/dL 2022 12:21 PM TELEPHONE MAINTAINER DTL Comment: ----REFERENCE VALUE---- Desirable: < 200 mg/dL Borderline High: 200 - 239 mg/dL High: > or = 240 mg/dL Cholesterol, LDL, Calculated 84 mg/dL 11/16/2022 12:21 PM TELEPHONE MAINTAINER DTL Comment: ----REFERENCE VALUE---- Desirable: <100 mg/dL Above Desirable: 100-129 mg/dL Borderline High: 130-159 mg/dL High: 160-189 mg/dL Very High: >=190 mg/dL ----ADDITIONAL INFORMATION---- LDL cholesterol calculated using the Fox/NIH equation. Cholesterol, HDL, S 84 >=50 mg/dL 11/16/2022 12:21 PM TELEPHONE MAINTAINER DTL Cholesterol, Non-HDL, Calculated 99 mg/dL 11/16/2022 12:21 PM TELEPHONE MAINTAINER DTL Comment: ----REFERENCE VALUE---- Desirable: <130 mg/dL Above Desirable: 130-159 mg/dL Borderline High: 160-189 mg/dL High: 190-219 mg/dL Very High: > or =220 mg/dL Fasting (8 HR or more) Unknown 11/16/2022 12:03 PM TELEPHONE MAINTAINER DTL Blood (Blood, Venous) 11/16/2022 11:16 AM TELEPHONE MAINTAINER 11/16/2022 12:03 PM TELEPHONE MAINTAINER Giancarlo Yadav M.D. LAB BLOOD ADD-ON Performing Organization Address City/[facility]/ZIP Co de Phone Number [facility] [address] [place] [address], [facility] [address] [place] [address] * HCV Ab Scrn w/Reflex to HCV PCR, Serum (11/16/2022 11:16 AM TELEPHONE MAINTAINER) Pathologist [facility] [place] HCV Ab Screen, S Negative Negative 11/16/2022 3:36 PM TELEPHONE MAINTAINER [facility] Comment:Ncxsbz-pm-xeymqj rat io is <1.00. Blood (Blood, Venous) 11/16/2022 11:16 AM TELEPHONE MAINTAINER 11/16/2022 2:30 PM TELEPHONE MAINTAINER Giancarlo Yadav M.D. LAB MICROB IOLOGY - BLOOD ORDERABLES Performing Organization Address City/[facility]/ZIP Co de Phone Number [facility] [address] [place] [address] [facility] [address] [place] [place] [address] * ThinPrep w/HPV Co-Test Screen (05/17/2020 1:54 PM CDT) Pathologist [facility] [place] 05/31/2020 11:46 AM CDT DTL Report electronically signed by LANA Ackerman(ASCP) I verify that I have examined all relevant slides/materials for the specimen(s) and rendered or confirmed the diagnosis. 05/31/2020 11:46 AM CDT DTL Gross Description Received specimen in a ThinPrep vial. 05/31/2020 11:46 AM CDT DTL Pap Test Source Cervical/Endocervi ji 05/31/2020 11:46 AM CDT DTL Clinical History WELL WOMAN EXAM/ROUTINE EXAM 05/31/2020 11:46 AM CDT DTL Hormone Therapy/Contracep tives None/Not known 05/31/2020 11:46 AM CDT DTL Interpretation Cervical/Endocervi ji ??(ThinPrep): Satisfactory for Evaluation Negative for Intraepithelial Lesion or Malignancy ??High Risk HPV testing results are NEGATIVE. See specific genotype results below. HPV with Genotyping, PCR, ThinPrep: ??HPV High Risk Type 16, PCR: ??NEGATIVE ??HPV High Risk Type 18, PCR: ??NEGATIVE ??HPV other High Risk types, PCR: ??NEGATIVE Other High Risk HPV types include: 31, 33, 35, 39, 45, 51, 52, 56, 58, 59, 66, and 68. 05/31/2020 11:46 AM CDT DTL Varies (Cervix/Endocerv ix) 05/17/2020 1:54 PM CDT 05/17/2020 7:01 PM CDT Renetta Jain M.D. LAB PAP PATHDX ORD ERABLES [facility] [address] [place] [address], [facility] DTL [facility] [address] [place] [address] from Last 3 Months or Most Recently Relevant to Health Maintenance Advance Directives For more information, please contact: [phone] * Full Code (Latest Code Status on File) Date Activated Date Inactivated Comments 02/16/2020 5:35 AM 02/16/2020 7:04 PM Question Answer Comments Full Code: Not Discussed Due to: Not medically appropriate * Full Code Date Activated Date Inactivated Comments 12/24/2018 4:57 PM 12/24/2018 8:40 PM Question Answer Comments Full Code: Discussed * Full Code Date Activated Date Inactivated Comments 12/24/2018 12:57 PM 12/24/2018 4:57 PM Question Answer Comments Full Code: Discussed Care Teams Cnc Field Service Engineer Relationship Specialty Start Date End Date Elsewhere, Pcp PCP - General Internal Medicine 12/28/22
--- OUTSIDE RECORDS SUMMARY | 2024-04-21 14:48 | XMS_ITS | Referral Summary ---
Author Organization [facility] Address [address] [place] [address] Care Team Providers Care Cds Sales Advisor Name Role Phone Elsewhere, Pcp Primary Care Provider Unavailabl e Source Comments Patient records contain information from all sites at [facility]. For routine questions regarding patient records, call [phone] during business hours, M-F 8:00 AM - 5:00 PM Central Time. Record requests for emergency care only can be directed to [phone] at any time.[facility] Encounters Date Type Department Care Team Description 04/10/2024 Clinical Communication Division of Gastroenterology in [place], [place] [address] [place] [phone] Giancarlo Yadav M.D. Rinvoq lab monitoring from Last 3 Months Allergies Active Allergy Reactions Criticality Noted Date [...] 1 each by intrauterine route continuously. 05/17/2020 6 Active multivitamin tablet Take 1 tablet by [...] 24 hr tabletIndications:Co litis Ulcerative (HCC),Medication Therapy Application Counselor Not Anticoagulant take one tablet by mouth once daily 30 tablet 3 01/22/2024 Active Active Problems Problem Noted Date Diagnosed Date Melanoma Skin Multiple Site 05/11/2020 Melanoma Trunk 01/28/2020 Overview (01/28/2020): Added automatically from request for surgery [id number] Counseling Preconception 02/03/2019 Colitis Ulcerative Pancolonic 08/09/2016 Anxiety Generalized Disorder 11/25/2008 Resolved Problems Problem Noted Date Diagnosed Date Resolved Date Uterine Septum 09/05/2016 02/03/2019 Immunizations Name Administration Dates Next Due DTaP-IPV 05/30/2016 HepB Adult 05/04/2008,03/30/2008 HepB Pediatric/Adolescent 05/04/2008,03/30/2008 Influenza (IM) Preservative Free 014,05/26/2011,09/01/2010,2008 Influenza TIV (IM) 07/17/2012,09/01/2010, 009 Influenza, Injectable, Mdck, Preservative Free, Quadrivalent 07/02/2018 Influenza, Injectable, Quadrivalent 06/22/2017 Influenza, Seasonal, Injectable 07/17/2012,09/01,06/16/2009 PCV13 06/22/2016 PPD Test 05/24/2011,07/15/2008 PPSV23 05/26/2011 RZV (SHINGRIX) 11/12/2022 Tdap 03/07/2018,03/04/2018 influenza vaccine quad (FLUZONE/FLUARIX) (6 months and older)(PF) 09/10/2022,06/22/2019,06/22/2017,2014,06/04/2014 Social History Tobacco Use Types Packs/Day Years Used Date Smoking Tobacco: Never Smokeless Tobacco: Never Tobacco Cessation:Counseling Given: Not Answered Comments:none Alcohol Use Standard Drinks/Week Comments No 0 (1 standard drink = 0.6 oz pur e alcohol) [facility] Eventdooities Answer Date Recorded In the past 12 months has [employer], [employer], oil, or water [employer] threatened to shut off services in your [...] declined 10/01/2022 How often do you attend quaker or gnosticist serv ices? Patient declined 10/01/2022 Do you belong to any clubs o r organizations such as quaker groups, unions, fraternal or athletic groups, or [...] Answer Date Recorded PHQ-2 Score 2 07/19/2022 [facility] - Occupational Stress [...] your living situation today? I have a [facility] place to live 10/10/2023 Education Answer Date [...] T Respiratory Rate 19 10/29/2022 1:31 PM RELAY MECHANIC Oxygen Saturation 99% 10/29/2022 1:31 PM RELAY MECHANIC Inhaled Oxygen Concentration - - Weight 59.9 kg (132 lb 2.7 oz) 09/06/2021 7:54 A M RELAY MECHANIC Height 166.4 cm (5' 5.51) 10/29/2022 12:[address] Body Mass Index 21.65 09/06/2021 7:54 AM RELAY MECHANIC Plan of Treatment Upcoming Encounters Date Type Department Care Team (Late st Contact Info) Description 06/11/2024 3:15 PM CDT Office Visit Department of Dermatology in [place], [place] [address] [place] [address] Michael Kiran M.D., M.S. [address] [place] [address] Medical Devices Implanted Type Area Riding Teacher Device Identifier Shelf Expiration Date Model / Serial / Lot Clp Hrzn Ti 6 Zack Ingram Marcus - [id number] Implanted:Qt y: 1 on 02/16/2020 by Paige Rocha M.D. at [facility] Hardware e.g. pins/screws/johnny s [employer] [id number] / / Clp Hrzn Ti 6 Clp Marcus - [id number] Implanted:Qt y: 1 on 02/16/2020 by Paige Rocha M.D. at [facility] Hardware e.g. pins/screws/johnny s [employer] [id number] 04/07/2024 [id number] / / [id number] Clp Hrzn Ti 6 Clp Marcus - [id number] Implanted:Qt y: 1 on 02/16/2020 by Paige Rocha M.D. at [facility] Hardware e.g. pins/screws/johnny s [employer] [id number] 04/07/2024 [id number] / / [id number] Description:Patient notes no screw,clips in body 03/07 2023 Liletta-05/17 Implanted:Qt y: 1 on 05/17/2020 by Renetta Jain M.D. Intrauterine Device Uterus [employer] / / Description:Due for removal 05/17/2026 Procedures Procedure Name Priority Date/Time Associated Diagnosis Comments HCV AB SCRN W/REFLEX TO HCV PCR, S Routine 11/16/2022 11:16 AM RELAY MECHANIC Colitis Ulcerative (HCC) LIPID PANEL, S Routine 11/16/2022 11:16 AM RELAY MECHANIC Colitis Ulcerative (HCC) THINPREP W/HPV CO-TEST SCREEN Routine 05/17/2020 1:54 PM CDT Pap Smear Examination from Last 3 Months or Most Recently Relevant to Health Maintenance Results * Lipid Panel (11/16/2022 11:16 AM RELAY MECHANIC) Triglycerides 85 mg/dL 11/16/2022 12:21 PM RELAY MECHANIC DTL Comment: ----REFERENCE VALUE---- Normal: <150 mg/dL Borderline High: 150-199 mg/dL High: 200-499 mg/dL Very High: > or =500 mg/dL Cholesterol, Total 183 mg/dL 2022 12:21 PM RELAY MECHANIC DTL Comment: ----REFERENCE VALUE---- Desirable: < 200 mg/dL Borderline High: 200 - 239 mg/dL High: > or = 240 mg/dL Cholesterol, LDL, Calculated 84 mg/dL 11/16/2022 12:21 PM RELAY MECHANIC DTL Comment: ----REFERENCE VALUE---- Desirable: <100 mg/dL Above Desirable: 100-129 mg/dL Borderline High: 130-159 mg/dL High: 160-189 mg/dL Very High: >=190 mg/dL ----ADDITIONAL INFORMATION---- LDL cholesterol calculated using the Fox/NIH equation. Cholesterol, HDL, S 84 >=50 mg/dL 11/16/2022 12:21 PM RELAY MECHANIC DTL Cholesterol, Non-HDL, Calculated 99 mg/dL 11/16/2022 12:21 PM RELAY MECHANIC DTL Comment: ----REFERENCE VALUE---- Desirable: <130 mg/dL Above Desirable: 130-159 mg/dL Borderline High: 160-189 mg/dL High: 190-219 mg/dL Very High: > or =220 mg/dL Fasting (8 HR or more) Unknown 11/16/2022 12:03 PM RELAY MECHANIC DTL Blood (Blood, Venous) 11/16/2022 11:16 AM RELAY MECHANIC 11/16/2022 12:03 PM RELAY MECHANIC Giancarlo Yadav M.D. LAB BLOOD ADD-ON [facility] [address] [place] [address], [facility] [address] [place] [address] * HCV Ab Scrn w/Reflex to HCV PCR, Serum (11/16/2022 11:16 AM RELAY MECHANIC) HCV Ab Screen, S Negative Negative 11/16/2022 3:36 PM RELAY MECHANIC [facility] Comment:Faeprf-fe-ebyvad rat io is <1.00. Blood (Blood, Venous) 11/16/2022 11:16 AM RELAY MECHANIC 11/16/2022 2:30 PM RELAY MECHANIC Giancarlo Yadav M.D. LAB MICROB IOLOGY - BLOOD ORDERABLES [facility] [address] [place] [address] [facility][note 3] [address] [place] [address] * ThinPrep w/HPV Co-Test Screen (05/17/2020 1:54 PM CDT) 05/31/2020 11:46 AM CDT DTL Report electronically signed by Mel White, SCT(ASCP) I verify that I have examined all [...] Jain M.D. LAB PAP PATHDX ORD ERABLES [facility] [address] [place] [address], [place] DTL [facility] [address] [place] [address] from Last 3 Months or Most Recently Relevant to Health Maintenance Advance Directives For more information, please contact: [phone] * Full Code (Latest Code Status on [...] Answer Comments Full Code: Discussed Care Teams Cds Sales Advisor Relationship Specialty Start Date End Date Elsewhere, Pcp PCP - General Internal Medicine 12/28/22
--- OUTSIDE RECORDS SUMMARY | 2024-04-21 14:48 | XMS_ITS | Encounter Summary ---
Author Organization [facility] Address [address] [place] [address] Care Team Providers Care Shingle Trimmer Name Role Phone [facility] Primary Care Provider [phone] Encounter Details Date Type Department Care Team (Late st Contact Info) Description 12/07/2022 Orders Only [facility] [address] [place] [address] Giancarlo Yadav MD [facility] [address] [place] [address] Chronic ulcerative pancolitis (H) (Primary Dx) Social History Tobacco Use Types Packs/Day Years Used Date Smoking Tobacco: Never Assessed Sex and Gender Information Value Date Recorded Sex Assigned at Female 06/14/2022 2:40 PM CDT Gender Identity Female 06/14/2022 2:40 PM CDT Sexual Orientation Not on file COVID-19 Exposure Response Date Recorded In the last 10 days, have yo u been in contact with someone who was confirmed or suspected to have Coronavirus/COVID-19? No / Unsure 11/10/2022 7:35 PM FITTER TACKER documented as of this encounter Plan of Treatment Scheduled Orders Name Type Priority Associated Diagnoses Orde r Schedule ALT Lab Routine Chronic ulcerative pancolitis (H) Expected: 12/21/2022, Expires: 12/08/2023 AST Lab Routine Chronic ulcerative pancolitis (H) Expected: 12/21/2022, Expires: 12/08/2023 documented as of this encounter Visit Diagnoses Diagnosis Chronic ulcerative pancolitis (H)- Primary [place] ulcerative (chronic) colitis documented in this encounter Additional Health Concerns Infection Onset Date Last Indicated Resolved Time Rule Out COVID-19 11/13/2023 11/13/2023 11/13/2023 7:57 AM FITTER TACKER COVID-19 11/13/2023 11/13/2023 12/04/2023 11:4 0 PM CDT documented as of this encounter Care Teams Shingle Trimmer Relationship Specialty Start Date End Date Clinic, MD [place] [address] [place] [address] PCP - General 06/14/20 documented as of this encounter
== END 2024-04-20 13:32 | disposition home or self-care (01) ==
LOC: NFLDREF 04-21 14:45
PROVIDERS: PCP Internal Medicine; Referring Provider Internal Medicine; Visit Provider Nurse Practitioner Family
DX: M54.50 Low back pain, unspecified (principal); N39.0 Urinary tract infection, site not specified; N10 Acute pyelonephritis
CPT/HCPCS: 87086; 87186

== ENCOUNTER 2024-10-19 18:53 | Outpatient (CLI) | payer BC, SELFPAY | END 2024-10-19 18:54 | disposition home or self-care (01) | LOC: NFLDREF 10-26 00:38 | PROVIDERS: PCP Internal Medicine; Referring Provider Internal Medicine | DX: M54.9 Dorsalgia, unspecified (principal); N39.0 Urinary tract infection, site not specified; N10 Acute pyelonephritis | CPT/HCPCS: 87086; 87186 ==